=== PATIENT | female | born 1940 | race Caucasian/White ===

== ENCOUNTER → 2017-03-25 | Outpatient (CLI) | payer MEDICARE, BC ==
--- NOTE | 2017-03-25 14:15 | RADRPT ---
PROCEDURE: XR AP pelvis/right hip. CLINICAL INDICATION: Hip pain TECHNIQUE: AP pelvis/AP and lateral right hip views available for review. COMPARISON: None available FINDINGS: The osseous structures are normal in mineralization, architecture and alignment. No fractures are i dentified. No osseous lesions are identified. The right and left hips are unremarkable. The SI roly ints are unremarkable. The soft tissues are unremarkable. IMPRESSION: Unremarkable examination RPTAT: HGDB .Roberto Carlos Lei MD, MD Date Time Electronically viewed and signed by .Roberto Carlos Lei MD, on 03/25/2017 14:15 .B/
== END | disposition home or self-care (01) ==
LOC: HKI 11:31
PROVIDERS: ATTEND Orthopaedic Surgery
DX: M25.551 Pain in right hip (principal)
CPT/HCPCS: 73502; G0463

== ENCOUNTER 2017-07-09 10:34 | Inpatient (IN) | payer MEDICARE, BC ==
[2017-07-09] VITALS (36 sets, daily range): BP systolic 73–157; BP diastolic 45–69; PULSE 77–104; RESP 16–23; Ht 154.9 cm; Wt 60.3 kg
[~2017-07-09] VITALS: Ht 154.9 cm; Wt 60.3 kg
[~2017-07-09 10:34] MED LIST: BUPIVACAINE 0.5% (SDV) 30 ML, morphine SULFATE (PF) 8 MG, EPINEPHrine 0.3 MG, KETOROLAC... IRR SCH; CEFAZOLIN 2 GM/50 ML (PMX) 50 ML IVPB SCH; DEXAMETHASONE 1 MG TAB PO SCH; GABAPENTIN 300 MG CAP PO SCH; SOD CHLORIDE 0.9% 100 ML, TRANEXAMIC ACID 3,000 MG IRR SCH; TRANEXAMIC ACID 1,000 MG in SOD CHLORIDE 0.9% 100 ML IVPB SCH
[2017-07-09] MEDS ORDERED: PRAV10TA43 PO (12:13)
[2017-07-09] MEDS ORDERED: LEVO100T82 PO (12:13)
[2017-07-09] MEDS ORDERED: ESTR1PAT TD (12:17)
[2017-07-09] MEDS ORDERED: CYCL1DRO BOTH EYES (12:18)
--- NOTE | 2017-07-09 12:42 | HPN ---
Date/Time of Note Date/Time of Note DATE: 07/09/17 TIME: 12:41 Interval H&P Admission Note Pt. seen H&P reviewed: No system changes ABHINAV CRUZ MD Jul 09, 2017 12:42
[2017-07-09] MEDS ORDERED: POLYMYXIN/BACITRACIN 1L IRRIG ONE (14:27)
[2017-07-09] MEDS ORDERED: THROMBIN 5000 UNIT VIAL ONE (14:27)
[2017-07-09] MEDS ORDERED: HYDROmorphONE 1 MG/ML SYG ONE (14:38)
[2017-07-09] MEDS ORDERED: HYDROmorphONE 1 MG/ML SYG IV PRN (14:38)
[2017-07-09] MEDS ORDERED: PROPOFOL 20 ML ONE (16:03)
[2017-07-09] MEDS ORDERED: ONDANSETRON 4 MG INJ ONE (16:03)
[2017-07-09] MEDS ORDERED: MIDAZOLAM 1 MG/ML 2 ML INJ ONE (16:03)
[2017-07-09] MEDS ORDERED: morphine SULFATE/PF (10 MG/10 ML) INJ ONE (16:03)
[2017-07-09] MEDS ORDERED: METOCLOPRAMIDE 10 MG INJ ONE (16:03)
[2017-07-09] MEDS ORDERED: CEFAZOLIN 1 GM INJ ONE (16:04)
[2017-07-09] MEDS ORDERED: ETOMIDATE 20 MG INJ ONE (16:34)
[2017-07-09] MEDS ORDERED: CA CHLORIDE 10% 10 ML SYRINGE ONE (16:38)
[2017-07-09] MEDS ORDERED: MEPERIDINE 25 MG INJ IV PRN (17:00)
[2017-07-09] MEDS ORDERED: DIPHENHYDRAMINE 50 MG INJ IV PRN ×2 (17:00→17:30)
[2017-07-09] MEDS ORDERED: EPHEDrine SULFATE 50 MG/5 ML SYG IV PRN (17:00)
[2017-07-09] MEDS ORDERED: ONDANSETRON 4 MG INJ IV PRN ×2 (17:00→17:30)
[2017-07-09] MEDS ORDERED: METOCLOPRAMIDE 10 MG INJ IV PRN (17:00)
[2017-07-09] MEDS ORDERED: HYDROmorphONE (0.2 MG/ML) 10ML SYG IV PRN ×3 (17:00)
[2017-07-09] MEDS ORDERED: EPHEDrine SULFATE 50 MG/5 ML SYG ONE (17:03)
[2017-07-09] MEDS ORDERED: ACETAMINOPHEN 500 MG TAB PO PRN (17:30)
[2017-07-09] MEDS ORDERED: BETHANECHOL 25 MG TAB PO PRN (17:30)
[2017-07-09] MEDS ORDERED: MAGNESIUM HYDROXIDE 30ML CUP PO PRN (17:30)
[2017-07-09] MEDS ORDERED: morphine 2 MG INJ IV PRN (17:30)
[2017-07-09] MEDS ORDERED: OXYCODONE/ACETAMINOPHEN (5/325) TAB PO PRN (17:30)
[2017-07-09] MEDS ORDERED: KETOROLAC 15 MG INJ IV PRN (17:30)
[2017-07-09] MEDS ORDERED: morphine 4 MG/ML VIAL IV PRN (17:30)
[2017-07-09] MEDS ORDERED: ZOLPIDEM 5 MG TAB PO PRN (17:30)
--- NOTE | 2017-07-09 17:35 | OPR ---
Date/Time of Note Date/Time of Note DATE: 07/09/17 TIME: 17:33 Operative Report Procedure Date: Jul 09, 2017 Preoperative Diagnosis Right hip arthritis status post hip arthroscopy Postoperative Diagnosis Right hip arthritis status post hip arthroscopy Operation Performed Right total hip replacement following hip arthroscopy Surgeon see signature line Synthetic Cloth Binding Cutter: CURLY MCGOWAN MD Anesthesia Type: general Estimated Blood Loss: 150 - 200 ml's Transfusion Required: no Complications: no Disposition: PACU Procedure Description Procedure Description BUTTON TUFTING MACHINE OPERATOR SURGEON: Curly Mcgowan MD was asked to be present at my request as a result of the complexity associated with this procedure including positioning of the extremity, positioning of the instrumentation and protection of the neurovascular structures. In my opinion, the assistance offered by a integrated pest management technician is insufficient and Dr. Mcgowan should be compensated for his time. PROCEDURE IN DETAIL: Following the administration of general endotracheal anesthesia supplemented with a spinal anesthetic, the patient was placed in the supine position. The bilateral lower extremities were then prepped and draped in the usual sterile fashion. A bottle washer radiograph was obtained for preliminary limb length and femoral size as well as acetabular size. A lateral incision was then made exposing the tensor fascia the fascia was incised the tensor was retracted laterally and the vessels were cauterized. Very significant anterior capsular scarring was noted from the prior surgical procedure. An extensive debridement was undertaken in anticipation of preparation of the anterior capsule. The anterior capsule was then identified and prepared. A capsulectomy was then performed and the femoral head was then evaluated. Severe arthritic changes were noted. A femoral head cut was then made in the appropriate degree of version and inclination. The acetabulum was then exposed and a capsulectomy and labrectomy were completed. The central portion was then entered and serially reamed up to the 47 mm size. A Depuy [place] cup which is 48 mm in size with a standard liner was then fit into position with solid fixation. A 30 mm screw was used for additional fixation. Attention was then directed to the femur, the femur was exposed and prepared. The canal was entered and serially reamed up to the 10 mm size. A 10 mm Depuy [place] stem was then inserted with solid fixation. A +1.5, 32 mm femoral head, which was ceramic was then inserted. The leg was taken through full range of motion with no evident instability. In addition, radiographs revealed excellent position with reproduction of the limb lengths within a millimeter. The wound was irrigated thoroughly. The wound was then closed in layers and a Prenio for the final cover. This was watertight. Estimated blood loss was procedure was 200 cc. Postoperative radiographs will be obtained in the recovery room. ABHINAV CRUZ MD Jul 09, 2017 17:35
[2017-07-09] MEDS: TRANEXAMIC ACID 1,000 MG in SOD CHLORIDE 0.9% 100 ML IV ONE ×2 (17:36→18:56)
[2017-07-09 18:19] LABS: BASOPHIL # 0.1 10^3/ul (0.0-0.1); BASOPHILS % 0.6 % (0.0-2.0); EOSINOPHILS # 0.3 10^3/ul (0.0-0.5); EOSINOPHILS % 2.1 % (0.0-7.0); HEMATOCRIT 38.5 % (37.0-47.0); HEMOGLOBIN 12.5 g/dl (12.0-16.0); LYMPHOCYTES # 1.9 10^3/ul (0.8-2.9); LYMPHOCYTES % 14.5 % (15.0-51.0); MEAN CORPUSCULAR HEMOGLOBIN 32.1 pg (29.0-33.0); MEAN CORPUSCULAR HGB CONC 32.5 g/dl (32.0-37.0); MEAN PLATELET VOLUME 10.4 fl (7.4-10.4); MONOCYTE # 1.3 10^3/ul (0.3-0.9); MONOCYTES % 10.1 % (0.0-11.0); NEUTROPHIL # 9.3 10^3/ul (1.6-7.5); NEUTROPHILS % 71.6 % (39.0-77.0); PLATELET COUNT 368 10^3/UL (140-415); RED BLOOD COUNT 3.89 10^6/ul (4.20-5.40); RED CELL DISTRIBUTION WIDTH 14.6 % (11.5-14.5)
--- NOTE | 2017-07-09 18:30 | RADRPT ---
PROCEDURE: X-ray right hip CLINICAL INDICATION: Total right hip arthroplasty. TECHNIQUE: Single frontal view of the right hip COMPARISON: 03/25/2017. FINDINGS: New right hip arthroplasty without evident hardware complication. Post surgical air and fluid over t he hip. No evident acute fracture. IMPRESSION: No evident hardware complication status post right hip arthroplasty. RPTAT: [facility] Physician Angie Date Time Electronically viewed and signed by Shavon Gill Physician on 07/09/2017 18:30 RS/
[2017-07-09 18:31] LABS: HOLD TRANSMISSIONS 1
[2017-07-09] MEDS: CEFAZOLIN 1 GM/50 ML (PMX) 50 ML IVPB SCH (18:34)
[2017-07-09] MEDS: CYCLOSPORINE 0.05% OPH DROPERETTE BOTH EYES SCH (21:00)
[2017-07-09] MEDS: GABAPENTIN 300 MG CAP PO SCH (21:03)
[2017-07-09] MEDS: LACTATED RINGER'S 1,000 ML IV SCH (21:03)
[2017-07-09] MEDS: SENNA/DOCUSATE NA (8.6MG/50MG) TAB PO SCH (21:03)
[2017-07-09] MEDS: ATORVASTATIN 10 MG TAB PO SCH (21:04)
--- NOTE | 2017-07-09 21:25 | RADRPT ---
PROCEDURE: Intraoperative imaging of the right hip with fluoroscopy. CLINICAL INDICATION: Right hip pain. Intraoperative. TECHNIQUE: 6 images of the right hip were obtained in the operating room with an image intensifier . No radiologist was in attendance. 17.9 seconds of fluoroscopy time was used. COMPARISON: No prior study is available for comparison. FINDINGS: Images demonstrate placement of a total right hip arthroplasty. IMPRESSION: 1. Satisfactory intraoperative imaging of the right hip. RPTAT: QQ .Buddy Nunez MD, MD Date Time Electronically viewed and signed by .Buddy Nunez MD, on 07/09/2017 21:24 .R/
[2017-07-10] MEDS: DEXAMETHASONE 2 MG TAB PO SCH ×4 (00:30→13:56)
[2017-07-10] MEDS: CEFAZOLIN 1 GM/50 ML (PMX) 50 ML IVPB SCH ×2 (02:59→11:45)
[2017-07-10] MEDS: LACTATED RINGER'S 1,000 ML IV SCH ×3 (05:14→20:57)
[2017-07-10 05:20] VITALS: BP 105/66; PULSE 80; RESP 17
[2017-07-10 05:20] LABS: ABNORMAL IP MESSAGE 1; BASOPHIL # 0.1 10^3/ul (0.0-0.1); BASOPHILS % 0.3 % (0.0-2.0); EOSINOPHILS % 0.1 % (0.0-7.0); HEMATOCRIT 39.5 % (37.0-47.0); HEMOGLOBIN 12.6 g/dl (12.0-16.0); LYMPHOCYTES # 0.5 10^3/ul (0.8-2.9); LYMPHOCYTES % 2.7 % (15.0-51.0); MEAN CORPUSCULAR HEMOGLOBIN 32.1 pg (29.0-33.0); MEAN CORPUSCULAR HGB CONC 31.9 g/dl (32.0-37.0); MEAN CORPUSCULAR VOLUME 100.8 fl (82.0-101.0); MEAN PLATELET VOLUME 10.6 fl (7.4-10.4); MONOCYTE # 1.1 10^3/ul (0.3-0.9); MONOCYTES % 6.5 % (0.0-11.0); NEUTROPHIL # 15.5 10^3/ul (1.6-7.5); NEUTROPHILS % 89.6 % (39.0-77.0); PLATELET COUNT 357 10^3/UL (140-415); RED BLOOD COUNT 3.92 10^6/ul (4.20-5.40); RED CELL DISTRIBUTION WIDTH 14.8 % (11.5-14.5); WHITE BLOOD COUNT 17.2 10^3/ul (4.8-10.8)
[2017-07-10 05:36] LABS: POSITIVE DIFF @See below
[2017-07-10] MEDS: LEVOTHYROXINE 100 MCG TAB PO SCH (06:14)
--- NOTE | 2017-07-10 07:03 | PN ---
Date/Time of Note Date/Time of Note DATE: 07/10/17 TIME: 07:02 24 hour Interval Summary Patient is awake and alert very comfortable. Physical Exam Sickle examination: Her wound is clean and dry. She is neurologically intact. There are no signs of DVT. Vital Signs Date Time Temp Pulse Resp B/P Pulse Ox O2 Delivery O2 Flow Rate FiO2 07/10/17 05:20 97.7 80 17 105/66 98 Nasal Cannula 2.0 Intake and Output 07/09/17 07/09/17 07/10/17 15:00 23:00 07:00 Intake Total 2060 ml 50 ml Output Total 650 ml Balance 1410 ml 50 ml VTE Prophylaxis VTE Prophylaxis Intervention: SCD's Lines/Catheters IV Catheter Type: Saline Lock Bermudez in Place: No Results Result Diagram: 07/10/17 0442 Results 24hrs Laboratory Tests Test 07/09/17 18:14 07/10/17 04:42 White Blood Count 13.0 H 17.2 #H Red Blood Count 3.89 L 3.92 L Hemoglobin 12.5 12.6 Hematocrit 38.5 39.5 Mean Corpuscular Volume 99.0 100.8 Mean Corpuscular Hemoglobin 32.1 32.1 Mean Corpuscular Hemoglobin Concent 32.5 31.9 L Red Cell Distribution Width 14.6 H 14.8 H Platelet Count 368 357 Mean Platelet Volume 10.4 10.6 H Neutrophils % 71.6 89.6 H Lymphocytes % 14.5 L 2.7 L Monocytes % 10.1 6.5 Eosinophils % 2.1 0.1 Basophils % 0.6 0.3 Nucleated Red Blood Cells % 0.0 0.0 Neutrophils # 9.3 H 15.5 H Lymphocytes # 1.9 0.5 L Monocytes # 1.3 H 1.1 H Eosinophils # 0.3 0.0 Basophils # 0.1 0.1 Nucleated Red Blood Cells # 0.0 0.0 CBC Results Faxed/Phoned 1 *H Assessment/Plan Assessment/Plan Assessment: That is post total hip replacement Plan: She will begin physical therapy this morning. She will be discharged to the [facility] on Thursday. Medications Medications Home Meds Reported Medications Cyclosporine (RESTASIS) 1 Each Droperette, 1 DROP BOTH EYES Q12, #1 BOX 07/09/17 Estradiol (Estradiol Transdermal Patch) 1 Each Patch.tdwk, 1 EACH TD TWICE A WEEK 0.25MG PATCH 07/09/17 Pravastatin Sodium* (Pravastatin Sodium*) 10 Mg Tablet, 10 MG PO HS, TAB 07/09/17 Levothyroxine Sodium* (Levoxyl*) 100 Mcg Tablet, 100 MCG PO BEFORE BREAKFAST, # 30 TAB 07/09/17 ABHINAV CRUZ MD Jul 10, 2017 07:03
--- NOTE | 2017-07-10 07:04 | DS ---
Date/Time of Note Date/Time of Note DATE: 07/10/17 TIME: 07:03 Discharge Summary Admission/Discharge Info Admit Date/Time Jul 09, 2017 at 11:19 Discharge Date/Time July 11, 2017 after physical therapy Discharge Diagnosis Primary right hip arthritis Patient Condition: Good Procedures Right total hip arthroplasty Hx of Present Illness Pain and stiffness for several years in the right hip Hospital Course Patient was admitted and underwent an uncomplicated procedure. On postoperative day number 2T was discharged to be followed up in the office in 2 weeks. Home Meds Reported Medications Cyclosporine (RESTASIS) 1 Each Droperette, 1 DROP BOTH EYES Q12, #1 BOX 07/09/17 Estradiol (Estradiol Transdermal Patch) 1 Each Patch.tdwk, 1 EACH TD TWICE A WEEK 0.25MG PATCH 07/09/17 Pravastatin Sodium* (Pravastatin Sodium*) 10 Mg Tablet, 10 MG PO HS, TAB 07/09/17 Levothyroxine Sodium* (Levoxyl*) 100 Mcg Tablet, 100 MCG PO BEFORE BREAKFAST, # 30 TAB 07/09/17 Primary Care Provider Feliberto Mercado MD Pending Labs Laboratory Tests Test 07/09/17 18:14 07/10/17 04:42 White Blood Count 13.010^3/ul (4.8-10.8) 17.210^3/ul (4.8-10.8) Red Blood Count 3.8910^6/ul (4.20-5.40) 3.9210^6/ul (4.20-5.40) Hemoglobin 12.5g/dl (12.0-16.0) 12.6g/dl (12.0-16.0) Hematocrit 38.5% (37.0-47.0) 39.5% (37.0-47.0) Mean Corpuscular Volume 99.0fl (82.0-101.0) 100.8fl (82.0-101.0) Mean Corpuscular Hemoglobin 32.1pg (29.0-33.0) 32.1pg (29.0-33.0) Mean Corpuscular Hemoglobin Concent 32.5g/dl (32.0-37.0) 31.9g/dl (32.0-37.0) Red Cell Distribution Width 14.6% (11.5-14.5) 14.8% (11.5-14.5) Platelet Count 59274^3/UL (140-415) 45785^3/UL (140-415) Mean Platelet Volume 10.4fl (7.4-10.4) 10.6fl (7.4-10.4) Neutrophils % 71.6% (39.0-77.0) 89.6% (39.0-77.0) Lymphocytes % 14.5% (15.0-51.0) 2.7% (15.0-51.0) Monocytes % 10.1% (0.0-11.0) 6.5% (0.0-11.0) Eosinophils % 2.1% (0.0-7.0) 0.1% (0.0-7.0) Basophils % 0.6% (0.0-2.0) 0.3% (0.0-2.0) Nucleated Red Blood Cells % 0.0/100WBC (0.0-0.0) 0.0/100WBC (0.0-0.0) Neutrophils # 9.310^3/ul (1.6-7.5) 15.510^3/ul (1.6-7.5) Lymphocytes # 1.910^3/ul (0.8-2.9) 0.510^3/ul (0.8-2.9) Monocytes # 1.310^3/ul (0.3-0.9) 1.110^3/ul (0.3-0.9) Eosinophils # 0.310^3/ul (0.0-0.5) 0.010^3/ul (0.0-0.5) Basophils # 0.110^3/ul (0.0-0.1) 0.110^3/ul (0.0-0.1) Nucleated Red Blood Cells # 0.010^3/ul (0.0-0.0) 0.010^3/ul (0.0-0.0) CBC Results Faxed/Phoned 1 ABHINAV CRUZ MD Jul 10, 2017 07:04
--- NOTE | 2017-07-10 07:05 | PDOCDIS ---
Discharge Instructions DIAGNOSIS Discharge Diagnosis Primary right hip arthritis CONDITION Patient Condition: Good HOME CARE INSTRUCTIONS: Diet Instructions: Regular ACTIVITY: Activity Restrictions: Slowly Increase Activity Keep Limb Elevated Bathing Restrictions: Shower FOLLOW UP/APPOINTMENTS Follow-up Plan 2 weeks in the office OTHER ORDERS: Other Orders: She can begin occupational and/or physical therapy at the [facility]. There are no weightbearing restrictions. She cannot extend the hip for 6 weeks. SCHOOL/WORK RELEASE May return to School/Work on: Jul 10, 2017 May return to School/Work with: With Restrictions School/Work Release Comment: No hip extension for 6 weeks. She may weight- bear as tolerated with no res ABHINAV CRUZ MD Jul 10, 2017 07:05
[2017-07-10 08:30] VITALS: BP 90/54; RESP 18
[2017-07-10] MEDS: SENNA/DOCUSATE NA (8.6MG/50MG) TAB PO SCH ×2 (09:00→20:55)
[2017-07-10] MEDS: CYCLOSPORINE 0.05% OPH DROPERETTE BOTH EYES SCH ×2 (09:01→20:56)
[2017-07-10] MEDS: ASPIRIN 81 MG TAB PO SCH (09:01)
[2017-07-10 11:48] VITALS: BP 97/54; PULSE 90; RESP 18
--- NOTE | 2017-07-10 12:57 | PN ---
Date/Time of Note Date/Time of Note DATE: 07/10/17 TIME: 12:56 Assessment/Plan VTE Prophylaxis VTE Prophylaxis Intervention: ambulation Lines/Catheters IV Catheter Type (from Nrsg): Saline Lock Urinary Cath still in place: No Subjective 24 Hr Interval Summary Free Text/Dictation Anethesia Note: A 77 year old female s/p right hip arthroplasty under GA, spinal, pod #1 is doing well. pain is controlled. no itching, headache, back pain or nack inflammation,or n/v. care per surgery team Exam/Review of Systems Vital Signs Vitals Vital Signs Date Time Temp Pulse Resp B/P Pulse Ox O2 Delivery O2 Flow Rate FiO2 07/10/17 11:48 90 18 97/54 97 Nasal Cannula 2.0 07/10/17 08:30 98.0 Intake and Output 07/09/17 07/09/17 07/10/17 15:00 23:00 07:00 Intake Total 2060 ml 1050 ml Output Total 650 ml Balance 1410 ml 1050 ml Results Result Diagram: 07/10/17 0442 Results 24 hrs Laboratory Tests Test 07/09/17 18:14 07/10/17 04:42 White Blood Count 13.0 H 17.2 #H Red Blood Count 3.89 L 3.92 L Hemoglobin 12.5 12.6 Hematocrit 38.5 39.5 Mean Corpuscular Volume 99.0 100.8 Mean Corpuscular Hemoglobin 32.1 32.1 Mean Corpuscular Hemoglobin Concent 32.5 31.9 L Red Cell Distribution Width 14.6 H 14.8 H Platelet Count 368 357 Mean Platelet Volume 10.4 10.6 H Neutrophils % 71.6 89.6 H Lymphocytes % 14.5 L 2.7 L Monocytes % 10.1 6.5 Eosinophils % 2.1 0.1 Basophils % 0.6 0.3 Nucleated Red Blood Cells % 0.0 0.0 Neutrophils # 9.3 H 15.5 H Lymphocytes # 1.9 0.5 L Monocytes # 1.3 H 1.1 H Eosinophils # 0.3 0.0 Basophils # 0.1 0.1 Nucleated Red Blood Cells # 0.0 0.0 CBC Results Faxed/Phoned 1 *H Medications Medications Current Medications Hydromorphone HCl (Dilaudid) 0.5 mg Q6H PRN IV PAIN Last administered on 14:42; Admin Dose 0.5 MG; Start 07/09/17 at 14:38 Cyclosporine (Restasis) 1 drop Q12 BOTH EYES Last administered on 07/10/17 09: 01; Admin Dose 1 DROP; Start 07/09/17 at 21:00 Atorvastatin Calcium (Lipitor) 5 mg DAILY@21 PO Last administered on 07/09/17 21:04; Admin Dose 5 MG; Start 07/09/17 at 21:00 Senna/Docusate Sodium (Senokot-S) 1 tab BID PO Last administered on 07/10/17 09:00; Admin Dose 1 TAB; Start 07/09/17 at 21:00 Simethicone (Mylicon) 80 mg TID PRN PO DISTENSION/GAS/BLOATING; Start 07/09/17 at 17:30 Magnesium Hydroxide (Milk Of Mag) 30 ml BID PRN PO CONSTIPATION; Start at 17:30 Acetaminophen (Tylenol Tab) 1,000 mg Q4H PRN PO TEMP GREATER THAN 100.4F; Start 07/09/17 at 17:30 Gabapentin (Neurontin) 300 mg HS PO Last administered on 07/09/17 21:03; Admin Dose 300 MG; Start 07/09/17 at 21:00 Oxycodone/ Acetaminophen (Percocet (5/ 325)) 1 tab Q4H PRN PO PAIN LEVEL 1-5; Start 07/09/17 at 17:30 Oxycodone/ Acetaminophen (Percocet (5/ 325)) 2 tab Q4H PRN PO PAIN LEVEL 6-10; Start 07/09/17 at 17:30 Morphine Sulfate (morphine) 2 mg Q2H PRN IV PAIN LEVEL 1-5; Start 07/09/17 at 17:30 Morphine Sulfate (morphine) 4 mg Q4H PRN IV PAIN LEVEL 6-10; Start 07/09/17 at 17:30 Ketorolac Tromethamine (Toradol) 15 mg Q6H PRN IV PAIN; Start 07/09/17 at 17:30 ; Stop 07/12/17 at 17:29 Ondansetron HCl (Zofran Inj) 4 mg Q6H PRN IV NAUSEA AND/OR VOMITING Last administered on 07/09/17 21:29; Admin Dose 4 MG; Start 07/09/17 at 17:30 Diphenhydramine HCl (Benadryl) 25 mg Q6H PRN IV PRURITUS; Start 07/09/17 at 17: 30 Aspirin 81 mg 81 mg DAILY PO Last administered on 07/10/17 09:01; Admin Dose 81 MG; Start 07/10/17 at 09:00 Lactated Ringer's (Lr) 1,000 ml @ 100 mls/hr Q10H IV Last administered on 07/10 05:14; Admin Dose 100 MLS/HR; Start 07/09/17 at 17:30 CAROL ANN ARAUJO MD Jul 10, 2017 12:57
--- NOTE | 2017-07-10 13:53 | PN ---
Date/Time of Note Date/Time of Note DATE: 07/10/17 TIME: 13:50 Assessment/Plan VTE Prophylaxis VTE Prophylaxis Intervention: ambulation Lines/Catheters IV Catheter Type (from Nrsg): Saline Lock Urinary Cath still in place: No Subjective 24 Hr Interval Summary Free Text/Dictation 77 yr old woman well known to me. hx pemphigus, remission, hyperlipidemia, djd now post op day one rt ther, has gotten up and did ok. her pain is resolved from preop status. no complaints vs mild low bp alert, fluent lungs clear, hr ok, wound inciision is clean no edema imp: doing well, cont with ambultion note elevated wbc may be from dexamethasone given preop, to follow Exam/Review of Systems Vital Signs Vitals Vital Signs Date Time Temp Pulse Resp B/P Pulse Ox O2 Delivery O2 Flow Rate FiO2 07/10/17 11:48 90 18 97/54 97 Nasal Cannula 2.0 07/10/17 08:30 98.0 Intake and Output 07/09/17 07/09/17 07/10/17 15:00 23:00 07:00 Intake Total 2060 ml 1050 ml Output Total 650 ml Balance 1410 ml 1050 ml Results Result Diagram: 07/10/17 0442 Results 24 hrs Laboratory Tests Test 07/09/17 18:14 07/10/17 04:42 White Blood Count 13.0 H 17.2 #H Red Blood Count 3.89 L 3.92 L Hemoglobin 12.5 12.6 Hematocrit 38.5 39.5 Mean Corpuscular Volume 99.0 100.8 Mean Corpuscular Hemoglobin 32.1 32.1 Mean Corpuscular Hemoglobin Concent 32.5 31.9 L Red Cell Distribution Width 14.6 H 14.8 H Platelet Count 368 357 Mean Platelet Volume 10.4 10.6 H Neutrophils % 71.6 89.6 H Lymphocytes % 14.5 L 2.7 L Monocytes % 10.1 6.5 Eosinophils % 2.1 0.1 Basophils % 0.6 0.3 Nucleated Red Blood Cells % 0.0 0.0 Neutrophils # 9.3 H 15.5 H Lymphocytes # 1.9 0.5 L Monocytes # 1.3 H 1.1 H Eosinophils # 0.3 0.0 Basophils # 0.1 0.1 Nucleated Red Blood Cells # 0.0 0.0 CBC Results Faxed/Phoned 1 *H Medications Medications Current Medications Hydromorphone HCl (Dilaudid) 0.5 mg Q6H PRN IV PAIN Last administered on 14:42; Admin Dose 0.5 MG; Start 07/09/17 at 14:38 Cyclosporine (Restasis) 1 drop Q12 BOTH EYES Last administered on 07/10/17 09: 01; Admin Dose 1 DROP; Start 07/09/17 at 21:00 Atorvastatin Calcium (Lipitor) 5 mg DAILY@21 PO Last administered on 07/09/17 21:04; Admin Dose 5 MG; Start 07/09/17 at 21:00 Senna/Docusate Sodium (Senokot-S) 1 tab BID PO Last administered on 07/10/17 09:00; Admin Dose 1 TAB; Start 07/09/17 at 21:00 Simethicone (Mylicon) 80 mg TID PRN PO DISTENSION/GAS/BLOATING; Start 07/09/17 at 17:30 Magnesium Hydroxide (Milk Of Mag) 30 ml BID PRN PO CONSTIPATION; Start at 17:30 Acetaminophen (Tylenol Tab) 1,000 mg Q4H PRN PO TEMP GREATER THAN 100.4F; Start 07/09/17 at 17:30 Gabapentin (Neurontin) 300 mg HS PO Last administered on 07/09/17 21:03; Admin Dose 300 MG; Start 07/09/17 at 21:00 Oxycodone/ Acetaminophen (Percocet (5/ 325)) 1 tab Q4H PRN PO PAIN LEVEL 1-5; Start 07/09/17 at 17:30 Oxycodone/ Acetaminophen (Percocet (5/ 325)) 2 tab Q4H PRN PO PAIN LEVEL 6-10; Start 07/09/17 at 17:30 Morphine Sulfate (morphine) 2 mg Q2H PRN IV PAIN LEVEL 1-5; Start 07/09/17 at 17:30 Morphine Sulfate (morphine) 4 mg Q4H PRN IV PAIN LEVEL 6-10; Start 07/09/17 at 17:30 Ketorolac Tromethamine (Toradol) 15 mg Q6H PRN IV PAIN; Start 07/09/17 at 17:30 ; Stop 07/12/17 at 17:29 Ondansetron HCl (Zofran Inj) 4 mg Q6H PRN IV NAUSEA AND/OR VOMITING Last administered on 07/09/17 21:29; Admin Dose 4 MG; Start 07/09/17 at 17:30 Diphenhydramine HCl (Benadryl) 25 mg Q6H PRN IV PRURITUS; Start 07/09/17 at 17: 30 Aspirin 81 mg 81 mg DAILY PO Last administered on 07/10/17 09:01; Admin Dose 81 MG; Start 07/10/17 at 09:00 Lactated Ringer's (Lr) 1,000 ml @ 100 mls/hr Q10H IV Last administered on 07/10 05:14; Admin Dose 100 MLS/HR; Start 07/09/17 at 17:30 FLORINA CROWLEY MD Jul 10, 2017 13:53
[2017-07-10 15:51] VITALS: BP 108/53; RESP 18
[2017-07-10 19:41] VITALS: BP 103/51; RESP 20
[2017-07-10] MEDS: GABAPENTIN 300 MG CAP PO SCH (20:55)
[2017-07-10] MEDS: ATORVASTATIN 10 MG TAB PO SCH (20:56)
[2017-07-11 05:16] LABS: ABNORMAL IP MESSAGE 1; BASOPHILS % 0.1 % (0.0-2.0); HEMATOCRIT 36.8 % (37.0-47.0); LYMPHOCYTES # 0.9 10^3/ul (0.8-2.9); MEAN CORPUSCULAR HEMOGLOBIN 32.2 pg (29.0-33.0); MEAN CORPUSCULAR HGB CONC 32.6 g/dl (32.0-37.0); MEAN CORPUSCULAR VOLUME 98.7 fl (82.0-101.0); MEAN PLATELET VOLUME 10.7 fl (7.4-10.4); MONOCYTE # 2.6 10^3/ul (0.3-0.9); MONOCYTES % 11.2 % (0.0-11.0); NEUTROPHIL # 19.5 10^3/ul (1.6-7.5); PLATELET COUNT 384 10^3/UL (140-415); RED BLOOD COUNT 3.73 10^6/ul (4.20-5.40); RED CELL DISTRIBUTION WIDTH 14.6 % (11.5-14.5); WHITE BLOOD COUNT 23.2 10^3/ul (4.8-10.8)
[2017-07-11 05:49] LABS: POSITIVE DIFF @See below
[2017-07-11] MEDS: LEVOTHYROXINE 100 MCG TAB PO SCH (07:12)
[2017-07-11] MEDS: OXYCODONE/ACETAMINOPHEN (5/325) TAB PO PRN ×2 (07:17→17:14)
[2017-07-11 08:57] VITALS: BP 125/63; RESP 20
[2017-07-11] MEDS: LACTATED RINGER'S 1,000 ML IV SCH (09:30)
[2017-07-11] MEDS: ASPIRIN 81 MG TAB PO SCH (09:34)
[2017-07-11] MEDS: SENNA/DOCUSATE NA (8.6MG/50MG) TAB PO SCH (09:34)
--- NOTE | 2017-07-11 10:25 | CONS ---
Date/Time of Note Date/Time of Note DATE: 07/11/17 TIME: 10:21 Assessment/Plan Assessment/Plan Problems: (1) History of total right hip arthroplasty Onset Date: ~ 07/09/2017 Status: Acute Comment: She is recuperating postoperatively without apparent complications. When physical therapy is deemed her appropriate she can be transferred for rehabilitative care. Arrangements are being made for this at the [facility] (2) Pemphigus Status: Chronic Comment: Noted and stable quiescent at this time (3) Hypothyroidism (acquired) Status: Chronic Comment: Continue replacement therapy (4) Hyperlipidemia Status: Chronic Comment: Continue statin therapy Qualifiers: Hyperlipidemia type: pure hypercholesterolemia Qualified Code: E78.00 - Pure hypercholesterolemia Consultation Date/Type/Reason Admit Date/Time Jul 09, 2017 at 11:19 Initial Consult Date July 09, 2017 Type of Consultation: Internal medicine Reason for Consultation Postop assistance with medical problems Referring Provider: ABHINAV CRUZ MD 24 HR Interval Summary Free Text/Dictation Charming female in bed. She complains of some swelling and the pain and pain at the operative leg Constitutional: no complaints (No fevers chills or sweats) Detailed Summary Respiratory: no complaints Cardiovascular: no complaints Gastrointestinal: no complaints Exam/Review of Systems Vital Signs Vitals Vital Signs Date Time Temp Pulse Resp B/P Pulse Ox O2 Delivery O2 Flow Rate FiO2 07/11/17 08:57 98.0 83 20 125/63 93 07/10/17 11:48 Nasal Cannula 2.0 Intake and Output 07/10/17 07/10/17 07/11/17 15:00 23:00 07:00 Intake Total 530 ml 1850 ml 700 ml Output Total 550 ml 230 ml 1000 ml Balance -20 ml 1620 ml -300 ml Exam Constitutional: alert, oriented Neck: non-tender, supple Respiratory: clear to auscultation, normal air movement Cardiovascular: nl pulses, regular rate and rhythm Results Result Diagram: 07/11/17 0453 Results 24 hrs Laboratory Tests Test 07/11/17 04:53 White Blood Count 23.2 #H Red Blood Count 3.73 L Hemoglobin 12.0 Hematocrit 36.8 L Mean Corpuscular Volume 98.7 Mean Corpuscular Hemoglobin 32.2 Mean Corpuscular Hemoglobin Concent 32.6 Red Cell Distribution Width 14.6 H Platelet Count 384 Mean Platelet Volume 10.7 H Neutrophils % 84.0 H Lymphocytes % 4.0 L Monocytes % 11.2 H Eosinophils % 0.0 Basophils % 0.1 Nucleated Red Blood Cells % 0.0 Neutrophils # 19.5 H Lymphocytes # 0.9 Monocytes # 2.6 H Eosinophils # 0.0 Basophils # 0.0 Nucleated Red Blood Cells # 0.0 Medications Medications Current Medications Hydromorphone HCl (Dilaudid) 0.5 mg Q6H PRN IV PAIN Last administered on 14:42; Admin Dose 0.5 MG; Start 07/09/17 at 14:38 Cyclosporine (Restasis) 1 drop Q12 BOTH EYES Last administered on 07/10/17 20: 56; Admin Dose 1 DROP; Start 07/09/17 at 21:00 Atorvastatin Calcium (Lipitor) 5 mg DAILY@21 PO Last administered on 07/10/17 20:56; Admin Dose 5 MG; Start 07/09/17 at 21:00 Senna/Docusate Sodium (Senokot-S) 1 tab BID PO Last administered on 07/11/17 09:34; Admin Dose 1 TAB; Start 07/09/17 at 21:00 Simethicone (Mylicon) 80 mg TID PRN PO DISTENSION/GAS/BLOATING; Start 07/09/17 at 17:30 Magnesium Hydroxide (Milk Of Mag) 30 ml BID PRN PO CONSTIPATION; Start at 17:30 Acetaminophen (Tylenol Tab) 1,000 mg Q4H PRN PO TEMP GREATER THAN 100.4F; Start 07/09/17 at 17:30 Gabapentin (Neurontin) 300 mg HS PO Last administered on 07/10/17 20:55; Admin Dose 300 MG; Start 07/09/17 at 21:00 Oxycodone/ Acetaminophen (Percocet (5/ 325)) 1 tab Q4H PRN PO PAIN LEVEL 1-5 Last administered on 07/11/17 07:17; Admin Dose 1 TAB; Start 07/09/17 at 17:30 Oxycodone/ Acetaminophen (Percocet (5/ 325)) 2 tab Q4H PRN PO PAIN LEVEL 6-10; Start 07/09/17 at 17:30 Morphine Sulfate (morphine) 2 mg Q2H PRN IV PAIN LEVEL 1-5; Start 07/09/17 at 17:30 Morphine Sulfate (morphine) 4 mg Q4H PRN IV PAIN LEVEL 6-10; Start 07/09/17 at 17:30 Ketorolac Tromethamine (Toradol) 15 mg Q6H PRN IV PAIN; Start 07/09/17 at 17:30 ; Stop 07/12/17 at 17:29 Ondansetron HCl (Zofran Inj) 4 mg Q6H PRN IV NAUSEA AND/OR VOMITING Last administered on 07/09/17 21:29; Admin Dose 4 MG; Start 07/09/17 at 17:30 Diphenhydramine HCl (Benadryl) 25 mg Q6H PRN IV PRURITUS; Start 07/09/17 at 17: 30 Aspirin 81 mg 81 mg DAILY PO Last administered on 07/11/17 09:34; Admin Dose 81 MG; Start 07/10/17 at 09:00 Lactated Ringer's (Lr) 1,000 ml @ 100 mls/hr Q10H IV Last administered on 07/10 16:16; Admin Dose 100 MLS/HR; Start 07/09/17 at 17:30 RAF ENG MD Jul 11, 2017 10:24
[2017-07-11] MEDS: CYCLOSPORINE 0.05% OPH DROPERETTE BOTH EYES SCH (12:28)
== END 2017-07-11 18:10 | DRG 470 ==
LOC: REC 11:19 → MS1 20:03
PROVIDERS: ADMIT Orthopaedic Surgery; ATTEND Orthopaedic Surgery
PROC: 0SR904A Replacement of Right Hip Joint with Ceramic on Polyethylene Synthetic Substitute, Uncemented, Open Approach (ICD-10-PCS; principal; 2017-07-09 14:30)
DX: M16.11 Unilateral primary osteoarthritis, right hip (principal); L10.9 Pemphigus, unspecified; E78.5 Hyperlipidemia, unspecified; E03.9 Hypothyroidism, unspecified
CPT/HCPCS: 72170; 73530; 85025; 86999; 87086; 88304; 88311; 97116; 97162; 97530; C1713; C1776; J0171; J0690; J0735; J1170; J1885; J2250; J2274; J2405; J2765; J3370; J7120

== ENCOUNTER 2018-08-24 05:35 | Inpatient (IN) | END 2018-08-27 15:30 | DRG 454 ==